=== PATIENT | male | born 1960 | race Caucasian/White ===

== ENCOUNTER 2019-07-27 14:36 | Inpatient (IN) | payer MEDICARE ==
[~2019-07-27] VITALS: Ht 172.7 cm; Wt 67.5 kg
[2019-07-27] MEDS ORDERED: HYDR-3713 PO (15:25)
[2019-07-27] MEDS ORDERED: OXYC10TA3 PO (15:25)
[2019-07-27 15:30] LABS: BASO # 0.2 10^3/uL (0.0-0.2); EOS # 0.3 10^3/uL (0.0-0.5); HEMATOCRIT 50.1 % (42.0-52.0); LYMPH # 3.8 10^3/uL (1.5-5.0); LYMPH % 23.2 % (24.0-44.0); MEAN CORPUSCULAR HEMOGLOBIN 31.4 pg (27.0-33.0); MEAN CORPUSCULAR HGB CONC 33.9 g/dl (32.0-36.5); MEAN CORPUSCULAR VOLUME 92.4 fl (80.0-96.0); MONO # 0.9 10^3/uL (0.0-0.8); MONO % 5.3 % (0.0-5.0); PLATELET COUNT, AUTOMATED 224 10^3/uL (150-450); RED BLOOD COUNT 5.42 10^6/uL (4.30-6.10); WHITE BLOOD COUNT 16.2 10^3/uL (4.0-10.0)
--- NOTE | 2019-07-27 15:55 | REP ---
Portable chest x-ray: Single view. History: Chest pain. No comparison study. Findings: There is a large mass-like opacity in the right perihilar region. There is linear fibrosis and large bullae are seen in the lower lobe on the left and in both upper lobes. Heart is not enlarged and shifted somewhat to the right. There is diffuse osteopenia. Impression: Large mass-like opacity right perihilar region, etiology uncertain. Large bilateral air containing bullae. Fibrosis bilaterally. Consider chest CT. Electronically Signed by Evens Hinton MD 07/27/2019 04:52 P
[2019-07-27 16:10] LABS: BLOOD UREA NITROGEN 12 MG/DL (7-18); CALCIUM LEVEL 9.3 MG/DL (8.8-10.2); CARBON DIOXIDE LEVEL 26 MEQ/L (21-32); CHLORIDE LEVEL 109 MEQ/L (98-107); CK-MB VALUE MASS < 1.0 NG/ML (<3.6); CPK CREATINE PHOSPHOKINASE 67 U/L (39-308); CREATININE FOR GFR 1.04 MG/DL (0.70-1.30); GLOMERULAR FILTRATION RATE > 60.0 (>49); GLUCOSE, FASTING 120 MG/DL (70-100); MB/CK RELATIVE INDEX 1.49 (< OR =4); POTASSIUM SERUM 5.1 MEQ/L (3.5-5.1); SODIUM LEVEL 140 MEQ/L (136-145); TROPONIN I 0.06 NG/ML (< 0.10)
[2019-07-27] MEDS ORDERED: ISOVUE-370 76% 100ML VIAL (Q9967) As Ordered ONE (18:17)
--- NOTE | 2019-07-27 19:45 | REPVR ---
PROCEDURE INFORMATION: Exam: CT Angiography Chest With Contrast Exam date and time: 07/27/2019 7:01 PM Age: 59 years old Clinical indication: Chest pain TECHNIQUE: Imaging protocol: Computed tomographic angiography of the chest with intravenous contrast. 3D rendering: MIP and/or 3D reconstructed images were created by the technologist. Radiation optimization: All CT scans at this facility use at least one of these dose optimization techniques: automated exposure control; mA and/or kV adjustment per patient size (includes targeted exams where dose is matched to clinical indication); or iterative reconstruction. Contrast material: ISO 370; Contrast volume: 75 ml; Contrast route: IV; COMPARISON: CR PORTABLE CHEST X-RAY 07/27/2019 3:20 PM FINDINGS: Pulmonary arteries: There are no pulmonary emboli. Aorta: The aorta demonstrates mild atherosclerotic calcification. There is no aortic dissection or aneurysm. Lungs: Moderate paraseptal and centrilobular emphysematous changes with large apical blebs demonstrated in both lungs and in the left lung base. Bibasilar atelectasis. 3 mm peripheral subpleural noncalcified lung nodule left lower lobe. 8 mm slightly spiculated noncalcified nodule left upper lobe. 2 mm noncalcified subpleural nodule left upper lobe. Left upper lobe paramediastinal density measures 2.3 x 4.8 x 1.1 cm. Finding could represent atelectasis or a mass as well. Pleural space: Unremarkable. No pneumothorax. No pleural effusion. Heart: Unremarkable. No cardiomegaly. No pericardial effusion. Gallbladder and bile ducts: There has been a cholecystectomy. Lymph nodes: Unremarkable. No enlarged lymph nodes. Bones/joints: The spine demonstrates mild degenerative changes. Levoscoliosis. Soft tissues: Lobular opacified soft tissue mass in the right middle lobe measures 4.7 x 5.7 x 4.7 cm. Finding worrisome for neoplasm. Lesion is accessible via image guided percutaneous biopsy if clinically desired. IMPRESSION: 1. Moderate paraseptal and centrilobular emphysematous changes with large apical blebs demonstrated in both lungs and in the left lung base. 2. Multiple bilateral pulmonary parenchymal nodules as described above including a mildly spiculated noncalcified 8 mm nodule in the left upper lobe. For patients at low risk (minimal or absent history of smoking and of other known risk factors), recommend CT at 6-12 months, then consider CT at 18-24 months. For patients at high risk (history of smoking or of other known risk factors), recommend CT at 6-12 months, then CT at 18-24 months. (Zoraida et al., Fleischner Society, 2017) 3. There is no aortic dissection or aneurysm. 4. Lobular opacified soft tissue mass in the right middle lobe measures 4.7 x 5.7 x 4.7 cm. Finding worrisome for neoplasm. Lesion is accessible via image guided percutaneous biopsy if clinically desired. 5. Left upper lobe paramediastinal density measures 2.3 x 4.8 x 1.1 cm. Finding could represent atelectasis or a a 2nd mass. 6. There has been a cholecystectomy. 7. There are no pulmonary emboli. Electronically signed by: Srinivasa Reyez On 07/27/2019 19:45:37 PM
[2019-07-27 20:12] LABS: ALBUMIN 3.6 GM/DL (3.2-5.2); ALT/SGPT 22 U/L (12-78); BILIRUBIN,DIRECT < 0.1 MG/DL (0.0-0.2); BILIRUBIN,TOTAL 0.4 MG/DL (0.2-1.0); LIPASE 88 U/L (73-393); TOTAL PROTEIN 7.5 GM/DL (6.4-8.2)
[2019-07-27] MEDS ORDERED: ACETAMINOPHEN TAB 650MG DOSE (2X325MG) PO PRN (20:30)
[2019-07-27] MEDS ORDERED: MAALOX 30 ML SUSP *UDC PO PRN (20:30)
[2019-07-27] MEDS ORDERED: MOM 30ML SUSPENSION UDC PO PRN (20:30)
--- NOTE | 2019-07-27 20:33 | HPEPDOC ---
[facility] Medical History & Physical Date of Admission Jul 27, 2019 Date of Service: Jul 27, 2019 Primary Care Physician: A Other Provider Ivan Dodd Attending Physician: TRAV GUTIERREZ MD History and Physical TIME OF SERVICE: 9:20 PM CHIEF COMPLAINT: Chest pain HISTORY OF PRESENT ILLNESS: This is a 59-year-old male from [facility] who presents with 8 out of 10, shooting substernal chest pain that radiated to his left arm this evening while at the drugstore this evening. He has never had this kind of pain before. He also complained of feeling dizzy and tired. He denied having fevers, chills or weight loss. Per discussion with Dr. Garvey the EKG and troponin were unremarkable wall. CT of the chest revealed up lung mass. He discussed these findings with Dr. Bello who recommended admission and that they could see him in the morning to discuss biopsy. REVIEW OF SYSTEMS: 12 point review of systems negative except as listed in HPI PAST MEDICAL/ SURGICAL HISTORY: Herniated disks Cholecystectomy SOCIAL HISTORY: He smokes FAMILY HISTORY: His uncle of an [place] in his 30s ALLERGIES: Please see below. HOME MEDICATIONS: Please see below. PHYSICAL EXAMINATION: VITAL SIGNS: Please see below. GEN: well-nourished / well developed/flat affect INTEGUMENT: not flushed/ spider angiomata. Face HEENT: NCAT / lips acyanotic /mucus membranes dry CVS: RRR/NMRG/ no lower extremity edema LUNGS: lungs are clear to auscultation bilaterally on room air ABDOMEN: Contour (flat) / soft & not tender with palpation MSK/EXTREMITIES: range of motion intact in all 4 extremities NEURO: CN 2-12 are grossly intact / speech is not dysarthric PSYCH: alert and oriented to person place and time/ able to understand and follow all commands LABORATORY DATA: See below. IMAGING: Chest x-ray " Impression: Large mass-like opacity right perihilar region, etiology uncertain. Large bilateral air containing bullae. Fibrosis bilaterally. Consider chest CT." Chest CT " IMPRESSION: 1. Moderate paraseptal and centrilobular emphysematous changes with large apical blebs demonstrated in both lungs and in the left lung base. 2. Multiple bilateral pulmonary parenchymal nodules as described above including a mildly spiculated noncalcified 8 mm nodule in the left upper lobe. For patients at low risk (minimal or absent history of smoking and of other known risk factors), recommend CT at 6-12 months, then consider CT at 18-24 months. For patients at high risk (history of smoking or of other known risk factors), recommend CT at 6-12 months, then CT at 18-24 months. (Zoraida et al., Fleischner Society, 2017) 3. There is no aortic dissection or aneurysm. 4. Lobular opacified soft tissue mass in the right middle lobe measures 4.7 x 5.7 x 4.7 cm. Finding worrisome for neoplasm. Lesion is accessible via image guided percutaneous biopsy if clinically desired. 5. Left upper lobe paramediastinal density measures 2.3 x 4.8 x 1.1 cm. Finding could represent atelectasis or a a 2nd mass. 6. There has been a cholecystectomy. 7. There are no pulmonary emboli. " MICROBIOLOGY: Please see below. Mr. Buenrostro is a 59-year-old smoker with newly diagnosed lung cancer who is admitted for evaluation of chest pain. PLAN: 1. Chest Pain - Plan: admit to medical floor/ call cardiology / telemetry / follow-up 2 more troponins, BNP, Echo, lipid panel / Acetaminophen & Nitro PRN for chest pain to reduce preload and after load / ASA, Statin 2. Lung mass - follow-up with pulmonary morning DVT PROPHYLAXIS: Lovenox DISPOSITION: Home likely tomorrow if trops are negative LATE ENTRY #STEMI - per discussion with Dr. Luu who reviewed the EKGs we will order Plavix, aspirin, Lovenox, atorvastatin, metoprolol, and Zetia & transfer him for PCI, graciously offered to assist with the transfer process Vital Signs Vital Signs Date Time Temp Pulse Resp B/P (MAP) Pulse Ox O2 Delivery O2 Flow Rate FiO2 07/27/19 15:45 79 20 147/88 (107) 100 Room Air 07/27/19 14:59 97.6 Laboratory Data Labs 24H Laboratory Tests 2 07/27/19 15:17: Immature Granulocyte % (Auto) 0.5, Neutrophils (%) (Auto) 68.0H, Lymphocytes (%) (Auto) 23.2L, Monocytes (%) (Auto) 5.3H, Eosinophils (%) (Auto) 2.0, Basophils (%) (Auto) 1.0, Neutrophils # (Auto) 11.0H, Lymphocytes # (Auto) 3.8, Monocytes # (Auto) 0.9H, Eosinophils # (Auto) 0.3, Basophils # (Auto) 0.2, Nucleated Red Blood Cells % (auto) 0.0, Anion Gap 5L, Glomerular Filtration Rate > 60.0, Ca lcium Level 9.3, Total Bilirubin 0.4, Direct Bilirubin < 0.1, Aspartate Amino Transf (AST/SGOT) 13, Alanine Aminotransferase (ALT/SGPT) 22, Alkaline Phosphatase 130H, Total Creatine Kinase 67, Creatine Kinase MB < 1.0, Creatine Kinase MB Relative Index 1.49, Troponin I 0.06, Total Protein 7.5, Albumin 3.6, Albumin/Globulin Ratio 0.92L, Lipase 88 CBC/BMP Laboratory Tests 07/27/19 15:17 Home Medications Scheduled PRN Hydrocodone/Acetaminophen ([place] 5-325 Tablet) 1 Each Tablet, 1 TAB PO Q4H PRN for PAIN Oxycodone HCl/Acetaminophen (Percocet 10-325 mg Tablet) 1 Each Tablet, 1 TAB PO BID PRN for PAIN Allergies Coded Allergies: No Known Allergies (Unverified , 07/27/19) A-FIB/CHADSVASC A-FIB History Current/History of A-Fib/PAF?: No Current PO Anticoag Therapy: No TRAV GUTIERREZ MD Jul 27, 2019 20:33
[2019-07-27] MEDS ORDERED: DOCUSATE SODIUM 100 MG CAP PO SCH (21:00)
[2019-07-27] MEDS ORDERED: EZETIMIBE 10 MG TAB (ZETIA) PO SCH (21:00)
[2019-07-27] MEDS ORDERED: ASPIRIN 81 MG CHEW TABLET PO SCH (21:00)
[2019-07-27] MEDS ORDERED: CLOPIDOGREL 75 MG TAB PO SCH (21:00)
[2019-07-27] MEDS ORDERED: ASPIRIN ENTERIC 325 MG TAB PO SCH (21:00)
[2019-07-27] MEDS ORDERED: ATORVASTATIN 20 MG TAB PO SCH (21:00)
[2019-07-27] MEDS ORDERED: PERC10TA26 PO (21:01)
[2019-07-27] MEDS ORDERED: NORC1TAB7 PO (21:01)
[2019-07-27 21:54] LABS: HEMOGLOBIN A1c 5.8 %
[2019-07-27 22:03] LABS: CHOLESTEROL RISK RATIO 4.864 (<5); TROPONIN I 20.1 NG/ML (< 0.10)
[2019-07-27] MEDS ORDERED: CLOPIDOGREL 300 MG TAB (PLAVIX) PO STA (22:13)
[2019-07-27] MEDS ORDERED: NITROGLYCERIN 0.4 MG SUBL TABLET SL PRN (22:15)
[2019-07-27] MEDS ORDERED: ENOXAPARIN 30 MG/0.3 ML SYR (J1650) IV ONE (22:15)
[2019-07-27] MEDS ORDERED: NORCO, ANEXSIA 5/325MG TABLET (HYDROcodone/ACETAMINOPHEN) PO PRN (22:30)
[2019-07-27] MEDS ORDERED: ENOXAPARIN 80 MG/0.8 ML SYRINGE (J1650) SC SCH (23:00)
[2019-07-28 02:43] VITALS: BP 129/70
[2019-07-28] MEDS ORDERED: AMIODARONE HCL 150 MG in IV 1 EA IV ONE (03:15)
[2019-07-28] MEDS ORDERED: ENOXAPARIN 40 MG/0.4 ML SYRINGE (J1650) SC SCH (09:00)
[2019-07-28] MEDS ORDERED: PANTOPRAZOLE 40MG TAB (PROTONIX) PO SCH (09:00)
--- NOTE | 2019-07-28 10:02 | ECGEPIP ---
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
--- NOTE | 2019-07-28 13:26 | IPN ---
DATE: 07/28/2019 NOTE: I need to clarify the admitting history and physical on Mr. Curtis. I reviewed the history and physical when I went to see him on consultation this morning and he had been transferred to [facility] secondary to his myocardial infarction. The admitting note states "CT of the chest revealed a lung mass. He (Dr. Garvey) discussed these findings with Dr. Bello who recommended admission and that they would see him in the morning to discuss biopsy." My discussion with Dr. Garvey had been that abnormal chest CTs are typically evaluated as an outpatient in large part because a lot of our procedures involve planning. He told me the patien was being admitted for his chest pain. I told him that as long as he was being admitted for chest pain that I would go ahead and see him for his lung mass and that perhaps there would be a percutaneous biopsy that could be done while he was inpatient but that any other biopsy would likely still need to be scheduled after further studies were done. I reviewed the chest CT scan after Dr. Garvey's conversation, and indeed, there is a pleural-based mass that could hqve been percutaneously biopsied. However, I also saw at that time that his troponin was 20.2 and he had been started on anticoagulation and Plavix. If he had not been transferred I would have left a consultation to the effect the lung mass needs to be evaluated but his cardiac difficulties come first and that no biopsy could safely be done at the present time anyway because of Plavix and anticoagulation. My primary reason for dictating this note, however, is to clarify the admission history and physical and the reason for his admission, which was chest pain, not his abnormal chest CT scan. JOEL
--- NOTE | 2019-07-28 18:55 | ECGEPIP ---
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
[2019-07-28] MEDS ORDERED: CLOPIDOGREL 75 MG TAB PO SCH (21:00)
[2019-07-28] MEDS ORDERED: METOPROLOL SUCC *XL* 12.5MG PER 1/2 TAB (TopROL *XL*) PO SCH (21:00)
== END 2019-07-28 02:58 | disposition short-term general hospital (02) | DRG 282 ==
LOC: M ED 14:36 → EDBD 14:36 → M ED INP 20:29
PROVIDERS: ADMIT Internal Medicine; ATTEND Internal Medicine
DX: I21.4 Non-ST elevation (NSTEMI) myocardial infarction (principal); R91.8 Other nonspecific abnormal finding of lung field; F17.200 Nicotine dependence, unspecified, uncomplicated; Z79.891 Long term (current) use of opiate analgesic